=== PATIENT | male | born 1930 | race Native Hawaiian/Other Pacific Islander ===

== ENCOUNTER 2017-07-17 10:16 | Outpatient (CLI) | payer OTHER ==
[2017-07-17 11:51] LABS: eGFR (African) > 60; eGFR (Non-African) > 60
== END 2017-07-17 10:17 ==
LOC: LAB 10:16
PROVIDERS: ATTEND Family Medicine
DX: E11.9 Type 2 diabetes mellitus without complications (principal); E78.5 Hyperlipidemia, unspecified
CPT/HCPCS: 36415; 80053; 80061; 82043; 83036

== ENCOUNTER 2017-11-03 08:06 | Outpatient (CLI) | payer OTHER ==
--- NOTE | 2017-11-03 12:39 | Diagnostic Imaging Report ---
ARA SOLOMON [facility] [address] [facility].[address] 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 Comparison exams: None provided Findings: 3 views of the shoulder demonstrate normal cortical margins. No evidence for fracture or dislocation. Acromioclavicular joint degenerative changes. No soft tissue abnormality. Impression: Acromioclavicular joint degenerative changes. No acute appearing osseous process. Electronically signed on Nov 03, 2017 9:03:16 AM [employer] by: Gonsalo ADKINS
--- NOTE | 2017-11-03 12:40 | Diagnostic Imaging Report ---
ARA SOLOMON [facility] [address] [facility].[address] [address] Report Submission Date: Nov 03, 2017 9:06:59 AM INSULATION INSTALLER Patient Study Name: NYLA WILSON Date: Nov 03, 2017 8:32:17 AM INSULATION INSTALLER Modality Type: CR Gender: M Description: UPPER EXTREMITY : 31 Institution: [facility] Physician: ARA SOLOMON Examination: Plain film wrist History: Wrist discomfort Comparison exams: None available Findings: 3 views the wrist demonstrates extensive articular degenerative changes. 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 No fracture. No dislocation. No soft tissue abnormality. Impression: Extensive osteoarthritic changes. No evidence for fracture. Electronically signed on Nov 03, 2017 9:06:59 AM INSULATION INSTALLER by: Gonsalo ADKINS
--- NOTE | 2017-11-03 12:40 | Diagnostic Imaging Report ---
ARA SOLOMON [facility] [address] [facility].[address] 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 No significant degenerative disease of the 1st carpal metacarpal articulation. No fracture. No dislocation. No soft tissue abnormality. Impression: Extensive osteoarthritic changes. No evidence for fracture. Electronically signed on Nov 03, 2017 9:05:46 AM DECORATIVE CUTTING MACHINE TENDER by: Gonsalo Winn Second line in the body of the report should read: Most significant degenerative disease is at the 1st carpal metacarpal articulation. Addendum electronically signed by Gonsalo Winn on November 03, 2017 9:08:08 AM DECORATIVE CUTTING MACHINE TENDER MTDD
== END 2017-11-03 08:07 ==
LOC: RAD 08:06
PROVIDERS: ATTEND Family Medicine
DX: M25.511 Pain in right shoulder (principal); M25.531 Pain in right wrist; M79.641 Pain in right hand
CPT/HCPCS: 73030; 73110; 73130

== ENCOUNTER → 2018-05-24 | Outpatient (CLI) | payer OTHER ==
--- NOTE | 2018-05-24 16:10 | Diagnostic Imaging Report ---
ARA SOLOMON [facility] [address] [facility].[address] [address] Report Submission Date: May 24, 2018 3:04:07 PM CDT Patient Study Name: NYLA WILSON Date: May 24, 2018 11:59:45 AM CDT Modality Type: DX Gender: M Description: CHEST : 31 Institution: [facility] Physician: ARA SOLOMON Examination: PA and lateral chest. History: Evaluate lung valdivia. CXR, DYSPNEA ON EXERTION, WORSENING X1 YEAR (Hx) Comparison exam: None provided. Findings: PA lateral chest demonstrate a normal cardiac and mediastinal silhouette. Vascular calcifications involving the aortic arch. Chronic appearing interstitial changes. No focal infiltrate. No blunting of the costophrenic margins. Mild acromioclavicular joint degenerative changes. Impression: Chronic appearing interstitial changes. No acute pulmonary process. Electronically signed on May 24, 2018 3:04:07 PM CDT by: Gonsalo ADKINS
--- NOTE | 2018-05-24 16:10 | Diagnostic Imaging Report ---
ARA SOLOMON [facility] [address] [facility] [address] Report Submission Date: May 24, 2018 3:05:38 PM CDT Patient Study Name: NYLA WILSON Date: May 24, 2018 12:03:01 PM CDT Modality Type: DX Gender: M Description: LOWER EXTREMITY : 31 Institution: [facility] Physician: ARA SOLOMON Examination: Plain film knees History: BILAT KNEES, PAIN IN BOTH KNEES X2-3 YEARS, NO KNOWN INJURY (Hx) Findings: 3 views of the right and left knees demonstrates tibial spine and patellar spurring. No fracture. No dislocation. Medial joint space narrowing. No joint effusion. Posterior vascular calcifications. Impression: Articular degenerative changes. No acute appearing osseous abnormality Electronically signed on May 24, 2018 3:05:38 PM CDT by: Gonsalo ADKINS
[2018-05-24 17:01] LABS: TOTAL PROTEIN 7.1 g/dL (6.0-8.5)
== END ==
LOC: RT 11:37
PROVIDERS: ATTEND Family Medicine
DX: R07.9 Chest pain, unspecified (principal); G89.29 Other chronic pain; M25.561 Pain in right knee; M25.562 Pain in left knee; E11.9 Type 2 diabetes mellitus without complications
CPT/HCPCS: 71046; 80053; 80061; 82043; 83036

== ENCOUNTER 2018-06-12 15:04 | Outpatient (CLI) | payer OTHER | END 2018-06-12 15:06 | LOC: CARD 15:04 | PROVIDERS: ATTEND Internal Medicine Cardiovascular Disease | DX: R07.9 Chest pain, unspecified (principal); I35.0 Nonrheumatic aortic (valve) stenosis; E11.9 Type 2 diabetes mellitus without complications; E78.5 Hyperlipidemia, unspecified | CPT/HCPCS: G0463 ==